=== PATIENT | female | born 1980 | race Two or more races ===

== ENCOUNTER 2020-04-02 08:46 | Outpatient (CLI) | payer OTHER | END 2020-04-02 08:59 | disposition home or self-care (01) | LOC: RX STUDY 08:46 | DX: R05 Cough (principal); J44.9 Chronic obstructive pulmonary disease, unspecified; R06.02 Shortness of breath; G47.31 Primary central sleep apnea; K21.9 Gastro-esophageal reflux disease without esophagitis ==